=== PATIENT | female | born 1995 | race Caucasian/White ===

== ENCOUNTER 2016-09-14 19:16 | Emergency (ER) | payer OTHER ==
[~2016-09-14] VITALS: Ht 162.6 cm; Wt 63.6 kg
[~2016-09-14 19:16] MED LIST: ACET325T51 PO; ALBU8.5H4 IH; IBUP200T48 PO; OXYC1TAB24 PO
[2016-09-14 19:25] VITALS: BP 111/77; PULSE 86; RESP 20; O2SAT 100
--- NOTE | 2016-09-14 20:08 | DRSVH ---
PROCEDURE: X-RAY CHEST, TWO VIEWS ([id number]) INDICATIONS: DIFFICULTY BREATHING, COUGH TECHNIQUE: 2 views of the chest were acquired. COMPARISON: [facility], , CLAVICLE COMP (RT), 06/26/2014, 14:54. FINDINGS: Surgical changes and devices: Right clavicle fracture fixation plate and screws stable over time. Lungs and pleura: No pleural effusions or pneumothorax. Lungs are clear. Mediastinum: Mediastinal contours are normal. Heart size is normal. Bones and chest wall: No suspicious bony abnormalities. Soft tissues appear unremarkable. IMPRESSION: Source of difficulty in breathing and cough is not found. Prior clavicle fracture fixat ion on the right. Dictated by: Raul Bentley M.D. on 09/14/2016 at 20:06 Approved by: Raul Bentley M.D. on 09/14/2016 at 20:07
--- NOTE | 2016-09-14 21:01 | ED.REPORT ---
HPI-General Illness Date of Service Sep 14, 2016 ED Provider: Jose Raul Galeana MD A 21 year old female with a history of sport induced asthma presents to the ED on oxygen complaining of SOB onset 1 week ago, described as inability to catch a full breath. Per mom, SOB seems to get worse at night. Per mom, the patient has had intense SOB while walking to the bathroom at night. Associated symptoms include dysphagia because of throat dryness. Denies cough, denies sputum. Denies fevers chills sweats. The patient denies feeling any postnasal drip or throat clearing. Also denies reflux. The patient was given a nebulizer treatment and inhaler refill for yesterday at . Her inhaler is not relieving symptoms and the nebulizer made a difference at the time it was given, but its effects only lasted for about an hour. The patient has been given ibuprofen as well. The mom reports that oxygen was given with the hope that it would help relieve symptoms, but it was not given because her vitals were bad. Nursing Notes Stated Complaint: TROUBLE BREATHING Chief Complaint: Respiratory Complaints Nursing Notes Reviewed: Yes Allergies: Coded Allergies: No Known Allergies (Unverified , 04/03/14) Scheduled Acetaminophen (Acetaminophen) 325 Mg Tablet 325-650 MG PO Q 6HRS PRN Loratadine (Claritin) 10 Mg Capsule 10 MG PO DAILY Prednisone (PredniSONE) 20 Mg Tablet 60 MG PO DAILY Scheduled PRN Albuterol HFA (Albuterol HFA) 8.5 Gm Hfa.aer.ad 1-2 PUFF IH Q4 PRN PRN For Shortness of Breath Ibuprofen (Ibuprofen) 200 Mg Tablet 200 MG PO QID PRN PRN For Pain oxyCODONE-Acetaminophen 5-325 mg (oxyCODONE-Acetaminophen 5-325 mg) 1 Each Tablet 1 TAB PO Q6H PRN PRN For Pain General Time Seen by MD: 21:01 Chief Complaint Breathing problem Hx Obtained From: Patient, Other family... (Mother) Arrived By: Walk-in Sudden in Onset?: No Onset Occurred: 1 week ago Symptom Duration: Intermittent Recent Healthcare: No recent doctor visit Similar Sx Previous: No Past Medical History Past Medical History Reports: Asthma (sports induced) Past Surgical History none reported Social History patient is not currently playing sports. Ambulatory Status Independent Review of Systems Dysphagia. Denies any pain. Denies feeling liquid travel down throat. Full Review of Systems Constitutional: Denies: Fever Respiratory: Reports: Shortness of breath, Denies: Non-productive cough GI: Denies: Nausea, Vomiting Musculoskeletal: Denies: Extremity swelling (no leg swelling) Complete sys rev & neg: except as marked. Physical Exam Vital Signs Vital Signs Date Time Temp Pulse Resp B/P Pulse Ox O2 Delivery O2 Flow Rate FiO2 09/14/16 22:16 36.9 78 14 118/64 98 Room Air 09/14/16 21:44 84 16 99 Room Air 09/14/16 19:25 36.9 86 20 111/77 100 Room Air Initial VS: Reviewed Head / Eyes: Atraumatic, Normocephalic, PERRL Skin: Warm, Dry, No cyanosis Neurologic: Alert, Oriented, Nonfocal General/Constitutional: Awake, Alert Patient does not appear to be in any distress. ENT: Pharynx NL Mucosa of nose is quite swollen, allergic appearing, dry, granular and swollen. Neck: No adenopathy Respiratory / Chest: Atraumatic, No wheezing No respiratory delay. Normal looking breathing cycle. Cardiovascular: Heart rate NL, No gallop Abdomen: Atraumatic, No guarding, No rebound Upper Extremities Upper Extremity / MS: Atraumatic, No swelling, No edema Wrist / Hand: Atraumatic, No swelling, No edema Lower Extremity / Pelvis / MS: No swelling, No edema Interpretation & Diagnostics X-Ray Chest Interpretation Chest Xray Interpretation: IMPRESSION: Source of difficulty in breathing and cough is not found. Prior clavicle fracture fixation on the right. Dictated by: Raul Bentley M.D. on 09/14/2016 at 20:06 Approved by: Raul Bentley M.D. on 09/14/2016 at 20:07 Interpretation / Wet Read by: Interpret - Radiologist Re-Eval/Medical Decision Med Decision/Clinical Course 21-year-old female with apparent reactive airways disease, quite possibly in the setting of seasonal allergies. Her nasal mucosa are swollen granular and red and appear to be allergic in character. She has no audible wheezes. Some improvement with the nebulizer here. Provided with a spacer for albuterol puffer. Brief course of prednisone and begin Claritin daily. Follow up with PCP. Known medication of serious issues. Chest x-ray suggests some air trapping but no other findings. No risk perc score 0 for risks for pulmonary embolus. Source of Hx: Old records Time of Eval: 21:12 Re-Evaluation/Progress Note: Explained that patient may have airway spasms or possible seasonal allergy, and explained plan to give her steroids. Time of Eval: 21:57 Re-Evaluation/Progress Note: Rechecked patient, explained test results, diagnosis, and plan for discharge. Explained how to use prescribed Prednisone, and counseled her to try using claritin for seasonal allergies. Explained the need for the patient to follow up with their doctor. Patient understands and agrees with the plan. All questions addressed. Counseled Regarding: Diagnosis, Lab results, Need for follow-up, When/why to return to ED Discharge & Departure Shift Change Sign-Out Response to Therapy: Improved Primary Impression: Reactive airway disease Additional Impression: Seasonal allergies Disposition: Home Discharge Condition All VS Reviewed: Yes Condition: Improved Patient Instructions: Reactive Airways Disease (ED) Additional Instructions: Begin prednisone three tablets daily for four days. Continue the albuterol puffer 4-5 times daily (every four hours as needed). Always use your spacer with the albuterol puffer. Begin Claritin daily and continue through the spring allergy season. Follow-up with your family doctor in the office. This can be evaluated further with pulmonary function testing. Your x-ray does not show pneumonia or any other dangerous issues. Return if you get worse despite treatment. Referrals: Clari Manning (PCP) Tomasa Attestation Portions of this note were transcribed by Allen Scott. I, Dr. Galeana personally performed the history, physical exam and medical decision-making; I reviewed and confirmed the accuracy of the information in the transcribed note. Signed by: Tomasa Silva, 09/14/2016 2227. copies to: Clari Manning Christopher W MD Sep 14, 2016 21:01 Allen Scott Sep 14, 2016 21:17
[2016-09-14] MEDS ORDERED: Dexamethasone 20 mg/2 mL Oral Solution PO ONE (21:15)
[2016-09-14] MEDS ORDERED: Albuterol-Ipratropium 3 mL Inhalation Solution NEB ONE (21:15)
[2016-09-14 21:44] VITALS: PULSE 84; RESP 16; O2SAT 99
[2016-09-14] MEDS ORDERED: LORA10CA PO (21:51)
[2016-09-14] MEDS ORDERED: PRE20 PO (21:51)
[2016-09-14 22:16] VITALS: BP 118/64; PULSE 78; RESP 14; O2SAT 98
== END 2016-09-14 22:17 | disposition home or self-care (01) ==
LOC: SED 19:16
DX: J45.990 Exercise induced bronchospasm (principal); J30.2 Other seasonal allergic rhinitis
CPT/HCPCS: 71020; 94664; 99284; J7620